=== PATIENT | female | born 1935 | race Caucasian/White ===

== ENCOUNTER → 2018-09-04 | Outpatient (CLI) | payer MEDICARE, OTHER ==
[~2018-09-04] MED LIST: ASPI325; DESL5 PO; DIAZ5 PO; LEVE500 PO; METO25ER PO; METO50ER; Multiple Vitam1 EAC1 PO; ST. JOSEPH ASPI81 MG PO; ZOLP10 PO
== END | disposition home or self-care (01) ==
LOC: LAB SHORT 15:16 → PLD 15:16
DX: D22.62 Melanocytic nevi of left upper limb, including shoulder (principal); D22.5 Melanocytic nevi of trunk
CPT/HCPCS: 88305

== ENCOUNTER 2021-08-22 17:00 | Observation (INO) | payer MEDICARE, OTHER ==
[~2021-08-22] VITALS: Ht 165.1 cm; Wt 68.0 kg
[2021-08-22 17:58] LABS: BASOPHILS ABSOLUTE AUTO 0.08 K/mm3 (0.00-0.23); BASOPHILS PERCENT AUTO 1 % (0-2); EOSINOPHILS ABSOLUTE AUTO 0.49 K/mm3 (0.00-0.68); EOSINOPHILS PERCENT AUTO 7 % (0-6); Hemoglobin 13.3 g/dL (11.5-16.0); IMMATURE GRAN ABSOLUTE AUTO 0.03 K/mm3 (0.00-0.10); IMMATURE GRAN PERCENT AUTO 0 % (0-1); LYMPHOCYTES PERCENT AUTO 25 % (21-46); MONOCYTES ABSOLUTE AUTO 0.63 K/mm3 (0.16-1.47); MONOCYTES PERCENT AUTO 9 % (4-13); Mean Corpuscular HGB 30.7 pg (26.0-34.0); Mean Corpuscular HGB Conc 33.3 g/dL (31.5-36.5); Mean Corpuscular Volume 92 fL (80-100); Mean Platelet Volume 10.1 fL (9.1-12.4); NEUTROPHILS ABSOLUTE AUTO 3.94 K/mm3 (1.96-9.15); NEUTROPHILS PERCENT AUTO 57 % (41-73); Platelet Count 287 K/mm3 (150-400); RDW Coefficient Variation 12.1 % (11.7-14.2); RDW Standard Deviation 41.2 fL (35.1-46.3); Red Blood Cell Count 4.33 M/mm3 (3.80-5.20); White Blood Cell Count 6.87 K/mm3 (4.00-11.30)
[2021-08-22 18:25] LABS: Albumin, Blood 3.4 g/dL (3.4-5.0); Albumin/Globulin Ratio 0.8 (0.8-1.8); Bilirubin, Total 0.7 mg/dL (0.1-1.0); Bun/Creatinine Ratio 18.9 (12.0-20.0); Calcium, Blood 9.3 mg/dL (8.5-10.1); Creatinine, Blood 0.9 mg/dL (0.40-1.00); Globulin, Blood 4.2 g/dL (2.2-4.0); Potassium, Blood 4.6 mmol/L (3.5-5.5); Total Protein, Blood 7.6 g/dL (6.4-8.2)
[2021-08-22] MEDS ORDERED: VERA80 PO (18:30)
[2021-08-22] MEDS ORDERED: PRAM.5 PO (18:30)
[2021-08-22] MEDS ORDERED: Naproxen375 MG PO (20:57)
[2021-08-22] MEDS ORDERED: PRAMIPEXOLE DIHY1 M1 PO (20:57)
[2021-08-22] MEDS ORDERED: VERAPAMIL HCL PO (20:58)
[2021-08-22 22:32] LABS: Prolactin 0.6 ng/mL (2.74-19.64)
[2021-08-23 05:31] LABS: CHOL/HDL RATIO 2.7; Cholesterol 177 mg/dL (50-200); HDL Cholesterol 65 mg/dL (>39); LDL/HDL RATIO 1.6; Low Density Lipoprotein Chol 101 mg/dL (0-110); Triglycerides 56 mg/dL (30-160); Very Low Density Lipoprot Chol 11 mg/dL (6-32)
--- NOTE | 2021-08-23 05:32 | NUR ---
ADMISSION SUMMARY PT RECEIVED FROM ED ON STRETCHER. A&OX4, ABLE TO MAKE NEEDS KNOWN. PT IS A 1 PERSON ASSIST. ON RA. TELE IS SR @81 PVC. PT HAS ECHO PROCEDURE THIS AM. ADLS PROVIDED, SAFETY MEASURES IN PLACE. WILL CONTINUE TO MONITOR.
[2021-08-23] MEDS ORDERED: ATOR40TA PO (15:12)
[2021-08-23] MEDS ORDERED: CLOP75 PO (15:13)
--- NOTE | 2021-08-23 16:46 | NUR ---
PT ALERT ORIENTED X 4,PT DENIES PAIN,NAUSEA AND VOMITING AND SHORTNESS OF BREATH.PT WORKED WITH PHYSICAL AND OCCUPATIONAL THERAPY,AND PT DID VERY WELL.PT HAVE 1+ BLE EDEMA,SKIN FRAGILE WITH SOME SCATTERD BRUISSING,NO OPEN WOUND NOTED.PT ON TELE SINUS 79,PT IS DISCHARGE HOME, AT BEDSIDE GAVE A LITTLE UPDATE AND EXPLAIN DISCHARGE SUMMARY AND GAVE TEACHING TO BOTH OF THEM AND BOTH OF VERBALIZED UNDERSTANDING,PT TRANSPORT VIA WHEELCHAIR AND TAKE ALL BELONGINGS.
== END 2021-08-23 17:10 | disposition home or self-care (01) ==
LOC: ER 17:00 → MEDS 17:01
PROVIDERS: Physician Assistant; ADMIT Internal Medicine
DX: G45.9 Transient cerebral ischemic attack, unspecified (principal); I16.0 Hypertensive urgency; I10 Essential (primary) hypertension; I44.0 Atrioventricular block, first degree; Z79.82 Long term (current) use of aspirin; Z88.5 Allergy status to narcotic agent; Z88.8 Allergy status to other drugs, medicaments and biological substances; Z88.1 Allergy status to other antibiotic agents
CPT/HCPCS: 36415; 70450; 80053; 80061; 82947; 83036; 84146; 84484; 85025; 93005; 93010; 93306; 93880; 96372; 96374; 97161; 97165; 97530; 97535; 99285-25; A9270; G0378; J0360; J1650

== ENCOUNTER 2022-12-28 19:03 | Emergency (ER) | payer MEDICARE, OTHER ==
[~2022-12-28] VITALS: Ht 154.9 cm; Wt 68.0 kg
[~2022-12-28 19:03] MED LIST changes: +ATOR40TA PO; +CLOP75 PO; +Naproxen375 MG PO; +PRAM.5 PO; +PRAMIPEXOLE DIHY1 M1 PO; +VERA80 PO; +VERAPAMIL HCL PO
[2022-12-28 20:15] LABS: BASOPHILS ABSOLUTE AUTO 0.07 K/mm3 (0.00-0.23); BASOPHILS PERCENT AUTO 1 % (0-2); EOSINOPHILS ABSOLUTE AUTO 0.05 K/mm3 (0.00-0.68); EOSINOPHILS PERCENT AUTO 1 % (0-6); Hematocrit 40.5 % (33.0-51.0); Hemoglobin 13.6 g/dL (11.5-16.0); IMMATURE GRAN ABSOLUTE AUTO 0.02 K/mm3 (0.00-0.10); IMMATURE GRAN PERCENT AUTO 0 % (0-1); LYMPHOCYTES ABSOLUTE AUTO 1.33 K/mm3 (0.84-5.20); LYMPHOCYTES PERCENT AUTO 19 % (21-46); MONOCYTES ABSOLUTE AUTO 0.46 K/mm3 (0.16-1.47); MONOCYTES PERCENT AUTO 7 % (4-13); Mean Corpuscular HGB 30.4 pg (26.0-34.0); Mean Corpuscular HGB Conc 33.6 g/dL (31.5-36.5); Mean Corpuscular Volume 90 fL (80-100); Mean Platelet Volume 10.6 fL (9.1-12.4); NEUTROPHILS ABSOLUTE AUTO 5.12 K/mm3 (1.96-9.15); NEUTROPHILS PERCENT AUTO 73 % (41-73); Platelet Count 238 K/mm3 (150-400); RDW Coefficient Variation 12.6 % (11.7-14.2); RDW Standard Deviation 41.2 fL (35.1-46.3); Red Blood Cell Count 4.48 M/mm3 (3.80-5.20); White Blood Cell Count 7.05 K/mm3 (4.00-11.30)
[2022-12-28 20:29] LABS: Albumin, Blood 3.5 g/dL (3.4-5.0); Albumin/Globulin Ratio 0.9 (0.8-1.8); Bilirubin, Total 0.6 mg/dL (0.1-1.0); Bun/Creatinine Ratio 19.3 (12.0-20.0); Calcium, Blood 9.1 mg/dL (8.5-10.1); Creatinine, Blood 0.93 mg/dL (0.40-1.00); Globulin, Blood 3.8 g/dL (2.2-4.0); Potassium, Blood 3.7 mmol/L (3.5-5.5); Total Protein, Blood 7.3 g/dL (6.4-8.2)
[2022-12-28 20:45] LABS: International Normalized Ratio 0.98; Prothrombin Time Results 10.3 Sec (9.7-11.5)
[2022-12-29 00:08] LABS: Source, Urine Straight Cath
[2022-12-29 00:12] LABS: Bilirubin, Urine Neg (Neg); Blood, Urine Neg (Neg); Glucose Qualitative, Urine Neg (Neg); Ketones, Urine Neg (Neg); Leukocyte Esterase, Urine 1+ (Neg); Nitrite, Urine Neg (Neg); Protein, Urine Neg (Neg); Specific Gravity, Urine 1.015 (1.003-1.022); Urobilinogen, Urine NORM (Normal)
[2022-12-29 00:35] LABS: Appearance, Urine Clear (Clear); Color, Urine Pale Yellow (P-Yellow)
[2022-12-29 00:37] LABS: Bacteria Mod /hpf; Red Blood Cells, Urine 0-2 /hpf (0-2); Squamous Epithelial Cells Rare /hpf (Few)
== END 2022-12-29 01:16 | disposition home or self-care (01) ==
LOC: ER 19:03
PROVIDERS: Student in an Organized Health Care Education/Training Program
DX: G45.9 Transient cerebral ischemic attack, unspecified (principal); I10 Essential (primary) hypertension; Z88.8 Allergy status to other drugs, medicaments and biological substances; Z88.5 Allergy status to narcotic agent; Z79.82 Long term (current) use of aspirin; Z79.899 Other long term (current) drug therapy
CPT/HCPCS: 36415; 70450; 80053; 81001; 85025; 85610; 87077; 87086; 87186; 93005; 93010; 99285-25

== ENCOUNTER 2023-06-24 19:47 | Observation (INO) | payer MEDICARE, OTHER ==
[~2023-06-24] VITALS: Ht 165.1 cm; Wt 65.0 kg
[2023-06-24 21:25] LABS: BASOPHILS ABSOLUTE AUTO 0.01 K/mm3 (0.00-0.23); BASOPHILS PERCENT AUTO 0 % (0-2); EOSINOPHILS ABSOLUTE AUTO 0.01 K/mm3 (0.00-0.68); EOSINOPHILS PERCENT AUTO 0 % (0-6); Hematocrit 38.7 % (33.0-51.0); Hemoglobin 13.4 g/dL (11.5-16.0); IMMATURE GRAN ABSOLUTE AUTO 0.01 K/mm3 (0.00-0.10); IMMATURE GRAN PERCENT AUTO 0 % (0-1); LYMPHOCYTES ABSOLUTE AUTO 1.04 K/mm3 (0.84-5.20); LYMPHOCYTES PERCENT AUTO 22 % (21-46); MONOCYTES ABSOLUTE AUTO 0.43 K/mm3 (0.16-1.47); MONOCYTES PERCENT AUTO 9 % (4-13); Mean Corpuscular HGB 29.4 pg (26.0-34.0); Mean Corpuscular HGB Conc 34.6 g/dL (31.5-36.5); Mean Corpuscular Volume 85 fL (80-100); Mean Platelet Volume 10.9 fL (9.1-12.4); NEUTROPHILS ABSOLUTE AUTO 3.14 K/mm3 (1.96-9.15); NEUTROPHILS PERCENT AUTO 68 % (41-73); Platelet Count 179 K/mm3 (150-400); RDW Coefficient Variation 12.6 % (11.7-14.2); Red Blood Cell Count 4.56 M/mm3 (3.80-5.20); White Blood Cell Count 4.64 K/mm3 (4.00-11.30)
[2023-06-24 21:37] LABS: Albumin, Blood 3.3 g/dL (3.4-5.0); Albumin/Globulin Ratio 0.9 (0.8-1.8); Bilirubin, Total 0.8 mg/dL (0.1-1.0); Bun/Creatinine Ratio 21.5 (12.0-20.0); Calcium, Blood 8.9 mg/dL (8.5-10.1); Creatinine, Blood 1.07 mg/dL (0.40-1.00); Globulin, Blood 3.5 g/dL (2.2-4.0); Potassium, Blood 2.8 mmol/L (3.5-5.5); Total Protein, Blood 6.8 g/dL (6.4-8.2)
[2023-06-24 22:50] LABS: Magnesium, Blood 2.5 mg/dL (1.6-2.4)
[2023-06-24 23:05] LABS: Prolactin 0.8 ng/mL (2.74-19.64)
[2023-06-25] LABS: Phosphorus, Blood 2.8 mg/dL (2.5-4.9); Thyroid Stimulating Hormone 2.75 uIU/mL (0.360-4.800)
[2023-06-25 00:31] VITALS: BP 160/75
[2023-06-25 03:13] VITALS: BP 192/73
--- NOTE | 2023-06-25 03:34 | NUR ---
ADMIT NOTE PT. ARRIVED TO FLOOR FROM ED VIA BED WITH POTASSIUM RUNNUNG. TRANSFERED TO BED VIA 1-2 PERSON ASSIST AND CUES. PT. DENIED CHEST PAIN/ PRESSURE, SOB AND DISCOMFORT. PT. ALERT AND ORIENTED X1/2 WITH CONFUSION. PT. ORIENTED TO ROOM AND CALL LIGHT.
--- NOTE | 2023-06-25 03:46 | NUR ---
PT. HAS INCREASED CONFUSION. PT. FIDGETING AND PULLING AT LINES, PULLED OUT HER IV TWO SEPERATE TIMES. IV COVERED WITH TUBULAR RETAINER NET AND COBAN. PT. ATTEMPTED TO GET OUT OF BED 3 TIMES, WHEN ASKED WHERE SHE WAS GOING PT STATED "SHE WAS GETTING DRESSED AND DIDNT KNOW', BED ALARM SET FOR PATIENT SAFETY.
[2023-06-25 04:38] VITALS: BP 171/80
--- NOTE | 2023-06-25 04:48 | NUR ---
SHIFT SUMMARY PT. ALERT AND ORIENTED X1-2 WITH CONFUSION. REORIENTED TO TASK/SITUATION. FIDGETING/RESTLESS T/O SHIFT. TRANSFER WITH GAITBELT AND 1-2 ASSIST TO BEDSIDE COMMONDE. ATTEMPTED TO GET OUT OF BED X2, BED ALARM ON, BED IN LOWEST POSITION, CALL LIGHT WITHIN REACH. FREQUENT CHECKS DONE.
[2023-06-25 05:15] LABS: BASOPHILS ABSOLUTE AUTO 0.01 K/mm3 (0.00-0.23); BASOPHILS PERCENT AUTO 0 % (0-2); EOSINOPHILS ABSOLUTE AUTO 0.03 K/mm3 (0.00-0.68); EOSINOPHILS PERCENT AUTO 1 % (0-6); Hematocrit 38.9 % (33.0-51.0); Hemoglobin 13.2 g/dL (11.5-16.0); IMMATURE GRAN PERCENT AUTO 0 % (0-1); LYMPHOCYTES ABSOLUTE AUTO 1.76 K/mm3 (0.84-5.20); LYMPHOCYTES PERCENT AUTO 37 % (21-46); MONOCYTES ABSOLUTE AUTO 0.37 K/mm3 (0.16-1.47); MONOCYTES PERCENT AUTO 8 % (4-13); Mean Corpuscular HGB 29.5 pg (26.0-34.0); Mean Corpuscular HGB Conc 33.9 g/dL (31.5-36.5); Mean Corpuscular Volume 87 fL (80-100); Mean Platelet Volume 10.9 fL (9.1-12.4); NEUTROPHILS ABSOLUTE AUTO 2.56 K/mm3 (1.96-9.15); NEUTROPHILS PERCENT AUTO 54 % (41-73); Platelet Count 181 K/mm3 (150-400); RDW Coefficient Variation 12.5 % (11.7-14.2); RDW Standard Deviation 40.2 fL (35.1-46.3); Red Blood Cell Count 4.47 M/mm3 (3.80-5.20); White Blood Cell Count 4.73 K/mm3 (4.00-11.30)
[2023-06-25 06:02] LABS: Albumin/Globulin Ratio 0.9 (0.8-1.8); Bilirubin, Total 0.7 mg/dL (0.1-1.0); Bun/Creatinine Ratio 16.7 (12.0-20.0); Calcium, Blood 8.3 mg/dL (8.5-10.1); Creatinine, Blood 0.84 mg/dL (0.40-1.00); Globulin, Blood 3.5 g/dL (2.2-4.0); Potassium, Blood 3.3 mmol/L (3.5-5.5); Total Protein, Blood 6.5 g/dL (6.4-8.2)
[2023-06-25 06:41] VITALS: BP 136/58
--- NOTE | 2023-06-25 06:44 | NUR ---
NOTES REVIEWED AND ASSESSMENT AND IN AGREEMENT
[2023-06-25 07:36] VITALS: BP 155/78
[2023-06-25 14:35] VITALS: BP 160/65
[2023-06-25] MEDS ORDERED: POTCHL20ER PO (16:07)
--- NOTE | 2023-06-25 18:31 | NUR ---
PT DISCHARGED FROM THE UNIT. IV REMOVED DISCHARGE INSTUCTIONS REVIEWED. MEDICATIONS FAXED TO PHARMACY. ZIO PATCH APPLIED PRIOR TO DISCHARGE. PT LEFT UNIT VIA WHEEL CHAIR TO DRIVE HOME
== END 2023-06-25 18:14 | disposition home or self-care (01) ==
LOC: ER 19:47 → MEDS 19:48 → ENPENDDIS 06-25 15:14 → MEDS 06-25 18:14
PROVIDERS: Family Medicine; Student in an Organized Health Care Education/Training Program; ADMIT Internal Medicine
DX: E87.6 Hypokalemia (principal); R55 Syncope and collapse; I10 Essential (primary) hypertension; Z86.73 Personal history of transient ischemic attack (TIA), and cerebral infarction without residual deficits; F03.90 Unspecified dementia, unspecified severity, without behavioral disturbance, psychotic disturbance, mood disturbance, and anxiety
CPT/HCPCS: 36415; 70450; 80053; 83735; 84100; 84132; 84146; 84443; 85025; 93005; 93010; 93246; 93306; 96361; 96365; 96366; 96372; 96375; 97110; 97162; 99285-25; A9270; G0378; J0360; J1650; J3480; J7030; J7050

== ENCOUNTER 2023-10-30 10:50 | Emergency (ER) | payer MEDICARE, OTHER ==
[~2023-10-30] VITALS: Ht 165.1 cm; Wt 68.0 kg
[~2023-10-30 10:50] MED LIST changes: +POTCHL20ER PO
[2023-10-30 10:53] VITALS: BP 148/82
[2023-10-30] MEDS ORDERED: DONEPEZIL HCL5 M2 PO (12:12)
[2023-10-30] MEDS ORDERED: TOLTERODINE TART4 MG PO (12:13)
== END 2023-10-30 12:05 | disposition home or self-care (01) ==
LOC: ER 10:50
DX: M54.50 Low back pain, unspecified (principal); I10 Essential (primary) hypertension; E78.5 Hyperlipidemia, unspecified; G89.29 Other chronic pain; Z88.6 Allergy status to analgesic agent; Z88.8 Allergy status to other drugs, medicaments and biological substances; Z88.1 Allergy status to other antibiotic agents; Z88.5 Allergy status to narcotic agent; Z79.02 Long term (current) use of antithrombotics/antiplatelets; Z79.82 Long term (current) use of aspirin; Z79.899 Other long term (current) drug therapy; W18.30XA Fall on same level, unspecified, initial encounter
CPT/HCPCS: 72100; 99283-25

== ENCOUNTER 2023-11-16 10:34 | Emergency (ER) | payer MEDICARE, OTHER ==
[~2023-11-16] VITALS: Ht 165.1 cm; Wt 68.0 kg
[~2023-11-16 10:34] MED LIST changes: +DONEPEZIL HCL5 M2 PO; +TOLTERODINE TART4 MG PO
[2023-11-16] MEDS ORDERED: DONE5 PO (10:51)
[2023-11-16] MEDS ORDERED: FLUDROCORTISON0.1 M1 PO (10:51)
[2023-11-16] MEDS ORDERED: TOLT4 PO (10:51)
[2023-11-16] MEDS ORDERED: PRAM.5 PO (10:52)
[2023-11-16 11:14] LABS: BASOPHILS ABSOLUTE AUTO 0.05 K/mm3 (0.00-0.23); BASOPHILS PERCENT AUTO 1 % (0-2); EOSINOPHILS ABSOLUTE AUTO 0.14 K/mm3 (0.00-0.68); EOSINOPHILS PERCENT AUTO 1 % (0-6); Hemoglobin 14.7 g/dL (11.5-16.0); IMMATURE GRAN ABSOLUTE AUTO 0.05 K/mm3 (0.00-0.10); IMMATURE GRAN PERCENT AUTO 1 % (0-1); LYMPHOCYTES ABSOLUTE AUTO 2.17 K/mm3 (0.84-5.20); LYMPHOCYTES PERCENT AUTO 21 % (21-46); MONOCYTES ABSOLUTE AUTO 0.66 K/mm3 (0.16-1.47); MONOCYTES PERCENT AUTO 6 % (4-13); Mean Corpuscular HGB 30.2 pg (26.0-34.0); Mean Corpuscular HGB Conc 33.4 g/dL (31.5-36.5); Mean Corpuscular Volume 90 fL (80-100); Mean Platelet Volume 10.9 fL (9.1-12.4); NEUTROPHILS ABSOLUTE AUTO 7.17 K/mm3 (1.96-9.15); NEUTROPHILS PERCENT AUTO 70 % (41-73); Platelet Count 268 K/mm3 (150-400); RDW Coefficient Variation 12.6 % (11.7-14.2); RDW Standard Deviation 41.2 fL (35.1-46.3); Red Blood Cell Count 4.87 M/mm3 (3.80-5.20); White Blood Cell Count 10.24 K/mm3 (4.00-11.30)
[2023-11-16 11:39] LABS: Albumin/Globulin Ratio 0.7 (0.8-1.8); Bilirubin, Total 1.4 mg/dL (0.1-1.0); Bun/Creatinine Ratio 25.7 (12.0-20.0); Calcium, Blood 8.5 mg/dL (8.5-10.1); Creatinine, Blood 0.86 mg/dL (0.40-1.00); Globulin, Blood 4.1 g/dL (2.2-4.0); Potassium, Blood 3.6 mmol/L (3.5-5.5); Total Protein, Blood 7.1 g/dL (6.4-8.2)
[2023-11-16] MEDS ORDERED: Walker (13:27)
[2023-11-16 13:30] VITALS: BP 155/95
== END 2023-11-16 13:58 | disposition home or self-care (01) ==
LOC: ER 10:34
PROVIDERS: Physician Assistant
DX: F03.90 Unspecified dementia, unspecified severity, without behavioral disturbance, psychotic disturbance, mood disturbance, and anxiety (principal); M54.50 Low back pain, unspecified; G89.29 Other chronic pain; I10 Essential (primary) hypertension; E78.5 Hyperlipidemia, unspecified; Z86.73 Personal history of transient ischemic attack (TIA), and cerebral infarction without residual deficits; Z79.899 Other long term (current) drug therapy; Z88.1 Allergy status to other antibiotic agents; Z88.5 Allergy status to narcotic agent; Z88.8 Allergy status to other drugs, medicaments and biological substances; W06.XXXA Fall from bed, initial encounter
CPT/HCPCS: 80053; 85025; 93005; 93010; 99284-25

== ENCOUNTER 2025-06-19 19:18 | Inpatient (IN) | payer MEDICARE, OTHER ==
[~2025-06-19] VITALS: Ht 165.1 cm; Wt 62.7 kg
[~2025-06-19 19:18] MED LIST changes: +DONE10 PO; +DONE5 PO; +FLUDROCORTISON0.1 M1 PO; +MIRABEGRON ER25 MG PO; +POTA20LUD PO; +TOLT4 PO; +Walker
[2025-06-19 20:13] LABS: BASOPHILS ABSOLUTE AUTO 0.09 K/mm3 (0.00-0.23); BASOPHILS PERCENT AUTO 2 % (0-2); EOSINOPHILS ABSOLUTE AUTO 0.21 K/mm3 (0.00-0.68); EOSINOPHILS PERCENT AUTO 4 % (0-6); Hematocrit 39.0 % (33.0-51.0); Hemoglobin 12.8 g/dL (11.5-16.0); IMMATURE GRAN ABSOLUTE AUTO 0.03 K/mm3 (0.00-0.10); IMMATURE GRAN PERCENT AUTO 1 % (0-1); LYMPHOCYTES ABSOLUTE AUTO 2.17 K/mm3 (0.84-5.20); LYMPHOCYTES PERCENT AUTO 37 % (21-46); MONOCYTES ABSOLUTE AUTO 0.32 K/mm3 (0.16-1.47); MONOCYTES PERCENT AUTO 6 % (4-13); Mean Corpuscular HGB Conc 32.8 g/dL (31.5-36.5); Mean Corpuscular Volume 91 fL (80-100); NEUTROPHILS ABSOLUTE AUTO 3.02 K/mm3 (1.96-9.15); NEUTROPHILS PERCENT AUTO 52 % (41-73); NRBC ABSOLUTE 0.00 K/mm3 (0.00-0.02); NRBC Auto 0.0 /100 WBC (0.0-0.2); Platelet Count 233 K/mm3 (150-400); RDW Coefficient Variation 14.9 % (11.7-14.2); RDW Standard Deviation 49.7 fL (35.1-46.3)
[2025-06-19 20:29] LABS: Alanine Aminotransfer (ALT/SGP 23.0 U/L (12-78); Albumin, Blood 3.2 g/dL (3.4-5.0); Albumin/Globulin Ratio 0.8 (0.8-1.8); Anion Gap 6.0 mmol/L (3-11); Aspartate Aminotrans (AST/SGOT 28.0 U/L (12-37); Bilirubin, Total 1.3 mg/dL (0.1-1.0); Blood Urea Nitrogen 12.0 mg/dL (8-24); CO2, Blood 28.0 mmol/L (21-32); Calcium, Blood 8.7 mg/dL (8.5-10.1); Chloride, Blood 105.0 mmol/L (98-108); Creatinine, Blood 0.51 mg/dL (0.40-1.00); Globulin, Blood 4.0 g/dL (2.2-4.0); Glucose, Blood 88.0 mg/dL (70-99); Potassium, Blood 4.0 mmol/L (3.5-5.5); Sodium, Blood 135.0 mmol/L (136-145); Total Protein, Blood 7.2 g/dL (6.4-8.2)
[2025-06-19] MEDS ORDERED: Furosemide 10 MG / ML 2ML Vial IV ONE (21:20)
[2025-06-19] MEDS ORDERED: Ondansetron HCl 2 MG / ML 2ML Vial IV PRN (21:55)
[2025-06-19 22:26] LABS: Magnesium, Blood 2.3 mg/dL (1.6-2.4); Thyroid Stimulating Hormone 2.71 uIU/mL (0.360-4.800)
[2025-06-19 23:56] VITALS: BP 147/86
[2025-06-20 04:00] VITALS: BP 162/86
--- NOTE | 2025-06-20 04:19 | NUR ---
NIGHT SUMMARY: PT ARRIVED TO FLOOR FROM ED AROUND MIDNIGHT. PT LINENS CHANGED, PLACED INTO A GOWN, ATTENDS CHANGED AND POWDER APPLIED. PT HAS PUREWICK IN PLACE- ON DIURETICS. DENIES CHEST PAIN OVERNIGHT. ON RA, ON TELE, AOX2-3. CALL LIGHT WITHIN REACH AND BED ALARM ON.
[2025-06-20 04:56] LABS: Hematocrit 38.2 % (33.0-51.0); Hemoglobin 12.6 g/dL (11.5-16.0); Mean Corpuscular HGB Conc 33.0 g/dL (31.5-36.5); Mean Corpuscular Volume 91 fL (80-100); NRBC ABSOLUTE 0.00 K/mm3 (0.00-0.02); NRBC Auto 0.0 /100 WBC (0.0-0.2); Platelet Count 210 K/mm3 (150-400); RDW Coefficient Variation 14.8 % (11.7-14.2); RDW Standard Deviation 49.1 fL (35.1-46.3)
[2025-06-20 05:14] LABS: Anion Gap 6.0 mmol/L (3-11); Blood Urea Nitrogen 9.0 mg/dL (8-24); CO2, Blood 30.0 mmol/L (21-32); Calcium, Blood 8.0 mg/dL (8.5-10.1); Chloride, Blood 105.0 mmol/L (98-108); Creatinine, Blood 0.63 mg/dL (0.40-1.00); Glucose, Blood 82.0 mg/dL (70-99); Magnesium, Blood 2.2 mg/dL (1.6-2.4); Potassium, Blood 3.3 mmol/L (3.5-5.5); Sodium, Blood 138.0 mmol/L (136-145)
[2025-06-20 07:36] VITALS: BP 154/79
[2025-06-20] MEDS ORDERED: Potassium Chloride 10 Meq Tablet SA PO SCH (08:00)
[2025-06-20] MEDS ORDERED: Enoxaparin 40 MG/0.4 ML SYR SC SCH (09:00)
[2025-06-20 11:50] VITALS: BP 133/79
[2025-06-20 15:12] VITALS: BP 129/73
--- NOTE | 2025-06-20 17:34 | NUR ---
SHIFT SUMMARY: PATIENT A/OX2-3, CONFUSED, BUT ABLE TO FOLLOW DIRECTIONS. PATIENT ON TELE, SR HR IN THE 80'S c 1ST DHB/PVC. PATIENT REPORTS OT EPISODE OF "ACHES" TO MID STERNUM, BUT RESSOLVED WITHOUT INTERVENTION. DR. ROMERO IS AWARE. PATIENT DENIES CP/PRESSURE, SOB, N/V AND GENERALIZED PAIN T/O SHIFT. ECHO WAS DONE TODAY, AWAITING FOR RESULT. PATIENT WAS SEEN BY PT FOR EVAL TODAY. PATIENT WAS ABLE TO DANGLE ON THE EOB, VERY WEAK AND REQUESTED TO GET BACK IN BED. PATIENT HAS GREAT APPETITE, INCONTINENT OF BAB, PUREWICK AND ATTENDS IN PLACED TOLERATING WELL. PATIENT RECEIVED SCHEDULED MEDS PER EMAR. VITAL SIGNS REVIEWED. BED ALARM ON FOR SAFETY. CALL LIGHT IN REACH. PATIENT FAMILY AT BEDSIDE T/O THE DAY.
[2025-06-20 19:37] VITALS: BP 172/92
[2025-06-20 21:01] VITALS: BP 143/78
[2025-06-21] VITALS (9 sets, daily range): BP systolic 135–166; BP diastolic 66–96
--- NOTE | 2025-06-21 06:14 | NUR ---
NIGHT SUMMARY: PT AOX TO SELF. REPO Q 2 HOURS, PUREWICK IN PLACE, HAD BM OVERNIGHT. BED ALARM ON DUE TO CONFUSION. DENIES CHEST PAIN THIS SHIFT. CALL LIGHT WITHIN REACH AND BED IN LOW POSITION. TELE READING NSR WITH FIRST DEG HEART BLOCK. ON ROOM AIR.
--- NOTE | 2025-06-21 13:05 | NUR ---
CUSHION FILLER NOTIFICATION NOTE: RECEIVED A CALL FROM ELDER [place] AT 1302, PER ELDER PATIENT HAD 8 SECONDS VENTRICULAR PAUSE. PATIENT SITTING UPRIGHT IN BED, HAVING LUNCH. PER SPOUSE PATIENT "TRYING TO SNEEZE BUT UNSUCCESSFUL". PATIENT DENIES CP/PRESSURE, SOB, N/V AND DIZIZNESS. PATIENT VITALS TAKEN- BP 135/96, HR 64 BPM, RESP 16, O2 95% RA, TEMP 97.4. NOTIFIED DR. ROMERO, RECEIVED ORDER TO STOP METOPROLOL AND LAB DRAW FOR MAGNESIUM.
[2025-06-21 13:08] LABS: Anion Gap 6.0 mmol/L (3-11); Blood Urea Nitrogen 11.0 mg/dL (8-24); C-REACTIVE PROTEIN, EXT RANGE 0.6 mg/dL (0.000-0.300); CO2, Blood 31.0 mmol/L (21-32); Calcium, Blood 8.7 mg/dL (8.5-10.1); Chloride, Blood 99.0 mmol/L (98-108); Creatinine, Blood 0.73 mg/dL (0.40-1.00); Glucose, Blood 98.0 mg/dL (70-99); Potassium, Blood 3.6 mmol/L (3.5-5.5); Sodium, Blood 132.0 mmol/L (136-145)
--- NOTE | 2025-06-21 17:13 | NUR ---
SHIFT SUMMARY: PATIENT HAD OT EPISODE OF VENTRICULAR PAUSE, DR. ROMERO WAS AWARE OF THIS EVENT. PATIENT HAS HAD NO EPISODE SINCE, SR HR IN THE 70'S c IST DHB/PVC. PATIENT CONTINUES TO DENIES CP/PRESSURE, SOB, N/V AND DIZZINESS T/O SHIFT. PATIENT RECEIVED HER FIRST DOSE OF PO JARDIANCE AND ENTRESTO AT 1215. PATIENT EDEMA TO BLE'S HAS IMPROVED c IV DIURETICS, PUREWICK/ATTENDS IN PLACED FOR INCONTINENT VOID OF BAB, TOLERATING WELL, GOOD APPETITE. PATIENT A/O2-3, c INTERMITTENT CONFUSION T/O SHIFT, BUT EASILY REDIRECTABLE, PLEASANT AND COOPERATIVE c CARE. PATIENT RECEIVED BEDBATH AND LINEN CHANGED. VITAL SIGNS REVIEWED. BED ALARM ON FOR SAFETY. CALL LIGHT IN REACH. SPOUSE AT BEDSIDE T/O THE DAY AND HE SPOKE TO DR. ROMERO FOR UPDATE c PLAN OF CARE.
[2025-06-22 04:56] VITALS: BP 129/94
[2025-06-22 06:10] LABS: Anion Gap 7.0 mmol/L (3-11); Blood Urea Nitrogen 10.0 mg/dL (8-24); CO2, Blood 31.0 mmol/L (21-32); Calcium, Blood 8.9 mg/dL (8.5-10.1); Chloride, Blood 101.0 mmol/L (98-108); Creatinine, Blood 0.73 mg/dL (0.40-1.00); Glucose, Blood 81.0 mg/dL (70-99); Potassium, Blood 3.5 mmol/L (3.5-5.5); Sodium, Blood 135.0 mmol/L (136-145)
[2025-06-22 07:26] VITALS: BP 141/105
--- NOTE | 2025-06-22 07:41 | NUR ---
SHIFT SUMMARY: PATIENT WAS AWAKE MOST OF THE NIGHT. DOES NOT UNDERSTAND CALL LIGHT, BED ALARM RINGING OFTEN. TELE SR @ 70, WITH PVC. BLE EDEMA TRACE.
[2025-06-22] MEDS ORDERED: Potassium Chloride 10 Meq Tablet SA PO SCH (08:00)
[2025-06-22] MEDS ORDERED: TOLTERODINE TART2 M1 PO (10:00)
[2025-06-22] MEDS ORDERED: PRAM.125 PO (10:01)
[2025-06-22] MEDS ORDERED: FURO20 PO (10:02)
[2025-06-22 11:36] VITALS: BP 111/58
[2025-06-22 13:02] VITALS: BP 136/70
--- NOTE | 2025-06-22 13:04 | NUR ---
PT WAS A RAPID RESPONSE FROM ROOM 357 FOR SYNCOPAL EPISODE. PT TRANSFERED TO PCU 06. REPORT RECIEVED FROM MOLLY Moore RN AND FILEMON LUJAN AT BEDSIDE AND RECIEVED REPORT ON THE PT WELL. THE PT IS SOMULENT BUT ARROUSABLE. ORIENTED TO SELF, PERSON, AND SHE KNOWNS SHE IS IN A HOSPITAL IN [facility]. THE PT IS ON RA W/ SP02 >93%. BREATHING UNLABORED. ON TELE SHE IS SR 70'S. BP 136/70 (88). KEPPRA STARTED PER EMAR ON ARRIVAL TO THE ROOM. MEDICATION INFUSING IN RIGHT WRIST 20G. THE PT IS LAYING SUPINE IN BED AND IS CURRENTLY RECIEVING A VENOUS DUPLEX TO CAROTIDS . THE PT'S ROXANE IS AT BEDSIDE AND HAS BEEN UPDATED ON CARE. SEE NOTES FOR UPDATES.
--- NOTE | 2025-06-22 13:11 | NUR ---
TRANSFER NOTE PT FOUND TO BE UNRESPONSIVE AFTER PT MOVED THE PT TO THE CHAIR. VSS. DR. ROMERO NOTIFIED. PT TRANSFERRED TO PCU 6, REPORT GIVEN AT THE BS TO PEDRO PABLO DUNHAM. PT'S AWARE.
--- NOTE | 2025-06-22 13:22 | NUR ---
NOTE: RAPID RESPONSE CALLED FOR PT AFTER PHYSICAL THERAPY WORKED WITH HER. PT WAS UP TO THE CHAIR AND SUDDENLY BECAME UNRESPONSIVE, DROOLING AND NOT RESPONDING TO PAINFUL STIMULI. VSS, CBG WNL. MILD CONVULSION NOTED. STATES THIS HAPPENS AT HOME OCCASSIONALLY. PT BECAME MORE ALERT AFTER THE RESPONSE TEAM ARRIVED. ABLE TO VERBALIZE SOME WORDS. STAFF ATTEMPTED TO GET HER OUT OF BED AGAIN TO THE COMMODE, ONCE BACK TO BED, SIMILAR SYMPTOMS OCCURRED. DR. ROMERO AWARE, ORDERS PLACE IN HER CHART FOR FURTHER LAB WORKUPS AND IMAGING.
--- NOTE | 2025-06-22 13:23 | NUR ---
In responding to a Rapid Response, I visited with the spouse, Jaycee. He told me about thier [employer] beliefs (He is the Chiropractic Assistant), their 15 yr hx of the patient struggling with episodes similar to what happened today. He tells me of the great friends and family that he has and how he is at peace in the midst of the Rapid Response. I provided therapeutic listening and a calming spirit. I will continue to remain available to the patient and family.
[2025-06-22 16:21] VITALS: BP 124/69
[2025-06-22 18:07] LABS: Magnesium, Blood 2.3 mg/dL (1.6-2.4)
[2025-06-22 18:08] LABS: Anion Gap 11.0 mmol/L (3-11); Blood Urea Nitrogen 13.0 mg/dL (8-24); CO2, Blood 27.0 mmol/L (21-32); Calcium, Blood 8.8 mg/dL (8.5-10.1); Chloride, Blood 103.0 mmol/L (98-108); Creatinine, Blood 0.71 mg/dL (0.40-1.00); Glucose, Blood 74.0 mg/dL (70-99); Potassium, Blood 3.6 mmol/L (3.5-5.5); Sodium, Blood 137.0 mmol/L (136-145)
--- NOTE | 2025-06-22 18:23 | NUR ---
EVENING SUMMARY PT IS SOMULENT, DIFFICULT TO AROUSE, WAKES TO PAINFUL STIMULI. PT STATED NAME, HUSBANDS NAME, MONTH, AND THAT SHE WAS IN A HOSPITAL. NO FURTHER ORIENTATION DETECTED. SOFT JUMBLED CONFUSION WHEN SPEAKING. ROXANE STATED THAT PT OFTEN HAS VISUAL HALLUCINATIONS THAT KEEP HER AWAKE T/O NIGHT, CAUSING HEAVY SLEEPING T/O DAY. PT ON TELE, MAINTAINING SR 60s-70s, BPs STABLE UNLESS REPOSITIONING, SEE POSITIVE ORTHO VS IN CHART. O2 SAT ABOVE 92% ON RA. PT IS INCONT, PUREWICK SET UP TO KEEP TRACK OF OUTPUT. CHARLA CHAMORRO CALLED DR ROMERO ABOUT PTS INABILITY TO STAY AWAKE, ORAL POTASSIUM SWITCHED TO IV PER DR ROMERO. AND GRANDDAUGHTER HAVE COME TO BEDSIDE AND RECIEVED UPDATES. PT ON BEDREST AT THIS TIME DUE TO SYNCOPAL EPISODES & RAPID RESPONSE ON MEDICAL FLOOR. SHE IS A Q2 TURN REPOSITION PT. SEE NOTES FOR UPDATES/ CHANGES.
[2025-06-22 20:56] VITALS: BP 139/69
[2025-06-22] MEDS ORDERED: Potassium Chl 20MEQ/Water100ML 100 ML IV SCH (21:00)
[2025-06-22] MEDS ORDERED: NS 250 ML IV PRN (22:45)
[2025-06-23] VITALS (8 sets, daily range): BP systolic 138–161; BP diastolic 61–80
[2025-06-23 04:45] LABS: BASOPHILS ABSOLUTE AUTO 0.10 K/mm3 (0.00-0.23); BASOPHILS PERCENT AUTO 1 % (0-2); EOSINOPHILS ABSOLUTE AUTO 0.17 K/mm3 (0.00-0.68); EOSINOPHILS PERCENT AUTO 2 % (0-6); Hematocrit 46.5 % (33.0-51.0); Hemoglobin 14.9 g/dL (11.5-16.0); IMMATURE GRAN ABSOLUTE AUTO 0.02 K/mm3 (0.00-0.10); IMMATURE GRAN PERCENT AUTO 0 % (0-1); LYMPHOCYTES ABSOLUTE AUTO 2.09 K/mm3 (0.84-5.20); LYMPHOCYTES PERCENT AUTO 26 % (21-46); MONOCYTES ABSOLUTE AUTO 0.65 K/mm3 (0.16-1.47); MONOCYTES PERCENT AUTO 8 % (4-13); Mean Corpuscular HGB Conc 32.0 g/dL (31.5-36.5); Mean Corpuscular Volume 91 fL (80-100); NEUTROPHILS ABSOLUTE AUTO 5.03 K/mm3 (1.96-9.15); NEUTROPHILS PERCENT AUTO 63 % (41-73); NRBC ABSOLUTE 0.00 K/mm3 (0.00-0.02); NRBC Auto 0.0 /100 WBC (0.0-0.2); Platelet Count 215 K/mm3 (150-400); RDW Coefficient Variation 14.3 % (11.7-14.2); RDW Standard Deviation 48.2 fL (35.1-46.3)
[2025-06-23 05:13] LABS: Anion Gap 12.0 mmol/L (3-11); Blood Urea Nitrogen 15.0 mg/dL (8-24); CO2, Blood 24.0 mmol/L (21-32); Calcium, Blood 8.2 mg/dL (8.5-10.1); Chloride, Blood 104.0 mmol/L (98-108); Creatinine, Blood 0.73 mg/dL (0.40-1.00); Glucose, Blood 57.0 mg/dL (70-99); Potassium, Blood 4.1 mmol/L (3.5-5.5); Sodium, Blood 136.0 mmol/L (136-145)
--- NOTE | 2025-06-23 07:29 | NUR ---
SHIFT SUMMARY: PT IS SOMNOLENT, OPENS EYES WITH STIMULATION. DOES NOT ANSWER QUESTIONS OR FOLLOW COMMANDS. VSS ON RA. SR WITH 1ST DEGREE HB 70'S-80'S. NOOB THIS SHIFT, REPOSITIONED TOLERATED. ON A REGULAR DIET, BUT PT IS NOT ALERT ENOUGH TO CONSUME ANYTHING PO. PT'S BG IN MORNING LABS WAS 57. I SAT PT UPRIGHT IN BED AND ATTEMPTED TO GIVE PT SOME ORANGE JUICE, SHE REFUSED TO DRINK. SO I THEN ADMINISTERED 1 AMP OF D50, BG INCREASED TO 117. WICKING SYSTEM DRAINING SMALL AMOUNT OF CASSI COLORED URINE. NO BM THIS SHIFT. BRIEF IN PLACE. BED IN LOWEST POSITION, CALL LIGHT WITHIN REACH. BED ALARM SET FOR PT'S SAFETY. FREQUENT ROUNDING COMPLETED.
--- NOTE | 2025-06-23 07:46 | NUR ---
Bedside shift report received from PEDRO PABLO Gutierres. The pt is difficult to arouse and when awakened by voice she does not respond verbally nor follow directions. She briefly opens her eyes, but appears to quickly fall back to sleep. Resistant initially to care, but seems to reassure without difficulty. Sinus rhythm by telemetry noted, 83 bpm. RR 13/min, on room air with spo2 95%. Blood pressure is 148/62 (89). Distal pulses good and cap refill is brisk. Skin is pink, warm and dry and intact. Lung sounds are clear.
--- NOTE | 2025-06-23 08:26 | NUR ---
PT opened her eyes, asked what time it was. PCT set pt up to eat breakfast, but she was unable to keep her eyes open to eat. checking bedside blood sugar at this time.
--- NOTE | 2025-06-23 11:24 | NUR ---
Drank about 1/3 of an Ensure Enlive before refusing and falling back to sleep. refused to eat any solid food.
--- NOTE | 2025-06-23 12:39 | NUR ---
Palliative care talking with Colton.
--- NOTE | 2025-06-23 13:37 | NUR ---
Spiritual care visit conducted. The patient is sleeping while I talk with spouse, Jaycee, who explains about his concerns about her slow recovery and he runs down his options if things don't change significantly in her condition. We also talk at length about his long career with [employer] in [facility], their 10 acre ranch in [place] and about the grown children (his and hers). He tells me [facility] [place] came to visit them yesterday in the evening. Jaycee welcomed prayer from Spiritual Care this day. He is tearful and voices appreciation at the prayer. I will continue to remain available to patient and family.
--- NOTE | 2025-06-23 15:32 | NUR ---
requested that the pt get her primapexole. States she usually gets it three times a day. Explained that it is only ordered once daily in the hospital, likely due to its somnulent effects and given the pt's lethargy since yesterday it would likely not be given at the same frequency as at home. Also explained that we would do a trial with soft foods to make sure that she was oriented enough this afternoon to swallow food, and then if so we could give her po meds. Explained that this morning and last night she was too lethargic to take her meds. He expressed understanding of this. She was given her primapexole after eating some her her lunch. At this time, she is not arousable, but V/S are stable. Continuous RR and Spo2 monitoring in place, as well as telemetry. Pt was given pericare after bowel incontinence, linen changed and repositioned to her right side.
--- NOTE | 2025-06-23 17:28 | NUR ---
Pt is cooperating with eating dinner. Given a few bites and after demonstrating ability to follow directions and stay awake, is assisting her with her meal.
--- NOTE | 2025-06-23 17:53 | NUR ---
Hearing aids removed and placed in baggage porter head on nightstand in corner of room.
--- NOTE | 2025-06-23 17:54 | NUR ---
Bed alarm on.
[2025-06-24 03:48] VITALS: BP 166/79
[2025-06-24 06:26] LABS: BASOPHILS ABSOLUTE AUTO 0.06 K/mm3 (0.00-0.23); BASOPHILS PERCENT AUTO 1 % (0-2); EOSINOPHILS ABSOLUTE AUTO 0.18 K/mm3 (0.00-0.68); EOSINOPHILS PERCENT AUTO 3 % (0-6); Hematocrit 43.6 % (33.0-51.0); Hemoglobin 14.4 g/dL (11.5-16.0); IMMATURE GRAN ABSOLUTE AUTO 0.01 K/mm3 (0.00-0.10); IMMATURE GRAN PERCENT AUTO 0 % (0-1); LYMPHOCYTES ABSOLUTE AUTO 1.77 K/mm3 (0.84-5.20); LYMPHOCYTES PERCENT AUTO 31 % (21-46); MONOCYTES ABSOLUTE AUTO 0.48 K/mm3 (0.16-1.47); MONOCYTES PERCENT AUTO 9 % (4-13); Mean Corpuscular HGB Conc 33.0 g/dL (31.5-36.5); Mean Corpuscular Volume 90 fL (80-100); NEUTROPHILS ABSOLUTE AUTO 3.13 K/mm3 (1.96-9.15); NEUTROPHILS PERCENT AUTO 56 % (41-73); NRBC ABSOLUTE 0.00 K/mm3 (0.00-0.02); NRBC Auto 0.0 /100 WBC (0.0-0.2); Platelet Count 239 K/mm3 (150-400); RDW Coefficient Variation 14.3 % (11.7-14.2); RDW Standard Deviation 47.4 fL (35.1-46.3)
--- NOTE | 2025-06-24 06:29 | NUR ---
SHIFT SUMMARY: PT IS A&O TO SELF, PLACE AND PRESIDENT, NOT THE CORRECT MONTH OR YEAR. BP ELEVATED, SYS >150, ON RA. SR 70'S-80'S. DENIES PAIN WHEN ASKED. SHE HAS TAKEN OFF THE COBAN THAT IS WRAPPED AROUND HER IV 3 TIMES THIS SHIFT. FREQUENTLY PICKING AT SHEETS, HER LINES, AND COBAN. TWICE WHEN THIS RN WENT IN TO REPOSITION AND CHANGE HER BRIEF, SHE ASKED ME TO LEAVE HER ALONE AND JUST LET HER . WICKING SYSTEM DRAINING SMALL AMOUNT OF DARK YELLOW URINE. NO BM THIS SHIFT. BED IN LOWEST POSITION, CALL LIGHT WITHIN REACH. BED ALARM SET FOR PT'S SAFETY. FREQUENT ROUNDING COMPLETED.
[2025-06-24 06:53] LABS: Alanine Aminotransfer (ALT/SGP 17.0 U/L (12-78); Albumin, Blood 2.8 g/dL (3.4-5.0); Albumin/Globulin Ratio 0.8 (0.8-1.8); Anion Gap 5.0 mmol/L (3-11); Aspartate Aminotrans (AST/SGOT 20.0 U/L (12-37); Bilirubin, Total 1.3 mg/dL (0.1-1.0); Blood Urea Nitrogen 16.0 mg/dL (8-24); CO2, Blood 25.0 mmol/L (21-32); Calcium, Blood 8.7 mg/dL (8.5-10.1); Chloride, Blood 106.0 mmol/L (98-108); Creatinine, Blood 0.65 mg/dL (0.40-1.00); Globulin, Blood 3.7 g/dL (2.2-4.0); Glucose, Blood 82.0 mg/dL (70-99); Potassium, Blood 3.9 mmol/L (3.5-5.5); Sodium, Blood 132.0 mmol/L (136-145); Total Protein, Blood 6.5 g/dL (6.4-8.2)
[2025-06-24 07:54] VITALS: BP 170/73
--- NOTE | 2025-06-24 08:07 | NUR ---
Orthostatic blood pressures done: lying 170/73 (101) sitting 143/81 (96) standing 146/64 (82) Pt denied any dizzyness, lightheadedness with change in position. Is sitting on side of bed, eating breakfast without any apparent difficulty. She is oriented to person, place, date/time and appropriate in conversation. quite a change from yesterday's lethargy.
--- NOTE | 2025-06-24 11:27 | NUR ---
MET WITH PT'S ROXANE AND DAUGHTER NOLVIA AFTER MEETING WITH PATIENT AND FAMILY AT BEDSIDE. AT THIS TIME, PT AND FAMILY WOULD LIKE TO PURSUE PT EVAL TO DETERMINE IF PT IS A CANDIDATE FOR SNF. IF SHE IS, THEY WOULD LIKE TO PURSUE SNF. IF SHE IS NOT, THEY ARE CONTEMPLATING HOME WITH HOSPICE. BOTH ROXANE AND NOLVIA ARE FAMILIAR WITH HOSPICE. HARD CHOICES BOOK GIVEN. THEY WILL SPEAK TO PT'S SON TONI, THEN WE'LL RECONVENE. DR. FREDERICK, BEDSIDE RN, CM NOTIFIED.
[2025-06-24 12:49] VITALS: BP 121/59
--- NOTE | 2025-06-24 13:35 | NUR ---
PT TO BEDSIDE, PUREWICK REMOVED.
--- NOTE | 2025-06-24 13:41 | NUR ---
Blood pressure significantly lower than this morning after medications were administered. Noted systolic is less than 130, so midodrine was given as scheduled. Pt currently working with PT.
--- NOTE | 2025-06-24 14:42 | NUR ---
1430 After working with PT, the pt was sitting up in chair and while her was at bedside, she became unresponsive, head drooping, eyes open, respirations even and unlabored, spo2 95% and NSR by telemetry and drooling. says that is what she does at home. B/P 64/53. Pt was lifted from the chair to the bed, and B/P was 127/80 (95) and pt became alert, conversant and oriented to person and following directions. is talking with Dana goel RN. Called Dr. Mason. The pt's has decided to change course and the pt will be pursuing hospice treatment.
[2025-06-24 17:39] VITALS: BP 175/104
[2025-06-24 20:19] VITALS: BP 98/61
[2025-06-25 00:09] VITALS: BP 98/65
[2025-06-25 03:59] VITALS: BP 127/69
--- NOTE | 2025-06-25 04:32 | NUR ---
SUMMARY: PT TRANSFERRED FROM PCU AROUND 4AM. PT AOX2, PUREWICK IN PLACE, ON RA. BED ALARM ON. BED IN LOW POSITION AND CALL LIGHT WITHIN REACH.
[2025-06-25 07:54] VITALS: BP 122/62
--- NOTE | 2025-06-25 16:09 | NUR ---
DISCHARGE SUMMARY CLIENT AOX2. MEDICATION COMPLIANT. CLIENT HAD BOUTS OF CONFUSION CONCERNING NOT VISITING. SEEN BY PROVIDER. DISCHARGE TO HOME HOSPICE ORDERS RECEIVED. IV, TELEMETY, AND PUREWICK DISCONTINED. DISCHARGE PACKET WAS REVEIWED WITH CLIENT AND . CLIENT LEFT THE UNIT VIA WHEELCHAIR ESCORTED BY .
== END 2025-06-25 14:49 | disposition hospice, home (50) | DRG 291 ==
LOC: ER 19:18 → PCU 21:52 → MEDS 21:52 → EDBEDREQTM 23:27 → MEDS 23:55 → PCU 06-22 12:51 → MEDS 06-25 03:53
PROVIDERS: Internal Medicine; Nurse Practitioner Acute Care; Student in an Organized Health Care Education/Training Program; ADMIT Student in an Organized Health Care Education/Training Program
DX: I11.0 Hypertensive heart disease with heart failure (principal); I50.21 Acute systolic (congestive) heart failure; I47.29 Other ventricular tachycardia; Z51.5 Encounter for palliative care; E87.6 Hypokalemia; F03.90 Unspecified dementia, unspecified severity, without behavioral disturbance, psychotic disturbance, mood disturbance, and anxiety; Z88.5 Allergy status to narcotic agent; Z88.8 Allergy status to other drugs, medicaments and biological substances; Z79.899 Other long term (current) drug therapy; Z66 Do not resuscitate; M54.9 Dorsalgia, unspecified; G89.29 Other chronic pain; E78.5 Hyperlipidemia, unspecified; Z86.73 Personal history of transient ischemic attack (TIA), and cerebral infarction without residual deficits; Z98.890 Other specified postprocedural states; H26.9 Unspecified cataract
CPT/HCPCS: 36415; 71046; 80048; 80053; 82550; 82947; 83735; 83880; 84146; 84443; 84484; 85025; 85027; 85651; 86140; 93005; 93010; 93880; 97110; 97116; 97161; 97163; 97530; 99285-25; A9270; C8929; J1650; J1938; J1953; J3480; J7050; Q9957